=== PATIENT | female | born 1990 | race African-American/Black ===

== ENCOUNTER 2016-11-04 19:19 | Emergency (ER) | payer OTHER, MEDICAID ==
[~2016-11-04] VITALS: Ht 170.2 cm; Wt 81.2 kg
[2016-11-04 19:43] VITALS: BP 116/75
[2016-11-04 19:53] LABS: BILIRUBIN,URINE NEGATIVE (NEG); GLUCOSE,URINE NEGATIVE (NEG); NITRITE,URINE NEGATIVE (NEG); PH,URINE 6.5; PROTEIN,URINE NEGATIVE (NEG-TRACE)
[2016-11-04 20:00] LABS: BASO # 0.1 x10^3/uL (0.0-0.2); BASO % 1 % (0-3); EOS % 2 % (0-3); HEMATOCRIT 37.3 % (36.0-47.0); HEMOGLOBIN 12.5 g/dL (12.0-15.5); LYMPH % 28 % (24-48); MEAN CORPUSCULAR HEMOGLOBIN 30 pg (25-35); MEAN CORPUSCULAR HGB CONC 34 g/dL (31-37); MEAN CORPUSCULAR VOLUME 89 fL (79-100); MONO % 9 % (0-9); NEUT % 61 % (31-73); PLATELET COUNT 180 x10^3/uL (140-400); RED BLOOD COUNT 4.19 x10^6/uL (3.50-5.40); WHITE BLOOD COUNT 10.6 x10^3/uL (4.0-11.0)
[2016-11-04 20:10] LABS: BACTERIA,URINE FEW /HPF (0-FEW); RBC,URINE 0 /HPF (0-2); SQUAMOUS EPITHELIAL CELL,UR MOD /LPF; WBC,URINE 20-40 /HPF (0-4)
--- NOTE | 2016-11-04 20:11 | PHYS DOC ---
Past Medical History Past Medical History: No Pertinent History Past Surgical History: No Surgical History Alcohol Use: None Drug Use: None Adult General Chief Complaint Chief Complaint: VAGINAL BLEEDING [facility] HPI Patient is a 26 year old female with no significant medical history who presents today with vaginal bleeding in that began this evening. Patient describes the bleeding as spotting. Denies any abdominal pain urgency frequency dysuria, she states she had an episode of vomiting this morning. She states she is currently 7 weeks 2 para 1. She states she has already seen a provider in an outpatient clinic a week ago and they did an ultrasound and urine which were normal. Review of Systems Review of Systems Constitutional: Denies fever or chills [] Eyes: Denies change in visual acuity, redness, or eye pain [] HENT: Denies nasal congestion or sore throat [] Respiratory: Denies cough or shortness of breath [] Cardiovascular: No additional information not addressed in HPI [] GI: Vaginal bleeding in : Denies dysuria or hematuria [] Musculoskeletal: Denies back pain or joint pain [] Integument: Denies rash or skin lesions [] Neurologic: Denies headache, focal weakness or sensory changes [] Endocrine: Denies polyuria or polydipsia [] Allergies Allergies Allergies Coded Allergies Type Severity Reaction Last Updated Verified No Known Drug Allergies 11/04/16 No Physical Exam Physical Exam Constitutional: Well developed, well nourished, no acute distress, non-toxic appearance. [] HENT: Normocephalic, atraumatic, bilateral external ears normal, oropharynx moist, no oral exudates, nose normal. [] Eyes: PERRLA, EOMI, conjunctiva normal, no discharge. [] Neck: Normal range of motion, no tenderness, supple, no stridor. [] Cardiovascular:Heart rate regular rhythm, no murmur [] Lungs & Thorax: Bilateral breath sounds clear to auscultation [] Abdomen: Bowel sounds normal, soft, no tenderness, no masses, no pulsatile masses. [] Pelvic exam External pelvic appears normal, cervix not well visualized, no CMT, trace amount of bright red blood in the vaginal vault, no adnexal tenderness. Skin: Warm, dry, no erythema, no rash. [] Back: No tenderness, no CVA tenderness. [] Extremities: No tenderness, no cyanosis, no clubbing, ROM intact, no edema. [] Neurologic: Alert and oriented X 3, normal motor function, normal sensory function, no focal deficits noted. [] Psychologic: Affect normal, judgement normal, mood normal. [] Current Patient Data Vital Signs Vital Signs Date Time Temp Pulse Resp B/P (MAP) Pulse Ox O2 Delivery O2 Flow Rate FiO2 11/04/16 19:43 98.5 71 16 116/75 (89) 100 Room Air 98.5 Lab Values Laboratory Tests Test 11/04/16 19:22 11/04/16 19:36 11/04/16 19:45 Urine Collection Type Unknown Urine Color Yellow Urine Clarity Clear Urine pH 6.5 Urine Specific [place] >=1.030 Urine Protein Negative mg/dL (NEG-TRACE) Urine Glucose (UA) Negative mg/dL (NEG) Urine Ketones (Stick) Negative mg/dL (NEG) Urine Blood Large (NEG) Urine Nitrite Negative (NEG) Urine Bilirubin Negative (NEG) Urine Urobilinogen Dipstick 1.0 mg/dL (0.2 mg/dL) Urine Leukocyte Esterase Negative (NEG) Urine RBC 0 /HPF (0-2) Urine WBC 20-40 /HPF (0-4) Urine Squamous Epithelial Cells Mod /LPF Urine Bacteria Few /HPF (0-FEW) Urine Mucus Mod /LPF POC Urine HCG, Qualitative Hcg positive (Negative) White Blood Count 10.6 x10^3/uL (4.0-11.0) Red Blood Count 4.19 x10^6/uL (3.50-5.40) Hemoglobin 12.5 g/dL (12.0-15.5) Hematocrit 37.3 % (36.0-47.0) Mean Corpuscular Volume 89 fL (79-100) Mean Corpuscular Hemoglobin 30 pg (25-35) Mean Corpuscular Hemoglobin Concent 34 g/dL (31-37) Red Cell Distribution Width 14.0 % (11.5-14.5) Platelet Count 180 x10^3/uL (140-400) Neutrophils (%) (Auto) 61 % (31-73) Lymphocytes (%) (Auto) 28 % (24-48) Monocytes (%) (Auto) 9 % (0-9) Eosinophils (%) (Auto) 2 % (0-3) Basophils (%) (Auto) 1 % (0-3) Neutrophils # (Auto) 6.5 x10^3uL (1.8-7.7) Lymphocytes # (Auto) 3.0 x10^3/uL (1.0-4.8) Monocytes # (Auto) 0.9 x10^3/uL (0.0-1.1) Eosinophils # (Auto) 0.2 x10^3/uL (0.0-0.7) Basophils # (Auto) 0.1 x10^3/uL (0.0-0.2) Maternal Serum HCG Beta Subunit 33222 mIU/mL (0-5) H Sodium Level 137 mmol/L (136-145) Potassium Level 3.4 mmol/L (3.5-5.1) L Chloride Level 103 mmol/L (98-107) Carbon Dioxide Level 27 mmol/L (21-32) Anion Gap 7 (6-14) Blood Urea Nitrogen 10 mg/dL (7-20) Creatinine 0.7 mg/dL (0.6-1.0) Estimated GFR (Cockcroft-Gault) 120.6 Glucose Level 95 mg/dL (70-99) Calcium Level 8.9 mg/dL (8.5-10.1) Laboratory Tests 11/04/16 19:45 Laboratory Tests 11/04/16 19:45 Microbiology 11/04/16 Wet Prep - Final, Complete EKG EKG [] Radiology/Procedures Radiology/Procedures [] Course & Med Decision Making Course & Med Decision Making Pertinent Labs and Imaging studies reviewed. (See chart for details) This is a 2 para [id number] female patient currently 7 weeks presenting to the ED with vaginal bleeding in that began today. Bleeding is described as spotting by patient. On physical exam she had trace amount of bright red blood in the vaginal vault. Positive urine hCG, beta-hCG 40 ,177, CBC no acute findings, BMP with no acute findings, wet prep positive for BV, discharged with Flagyl. First trimester ultrasound was noted for a single IUP with estimated gestational age of 6 weeks 6 days and heart rate of 130 , small subchorionic hematoma age indeterminate, small corpus luteum cyst of the left ovary, trace amount of free pelvic fluid nonspecific. Blood group A positive. Spoke with Dr. Tatiana CANSECO, she requested patient to be discharged and can follow- up with her office on Monday. Patient was instructed put on bedrest. Patient was provided return precautions including the need to return to the ED if she starts soaking more than 1 feminine pad an hour or develops abdominal pain or cramping. Dragon Disclaimer Dragon Disclaimer This electronic medical record was generated, in whole or in part, using a voice recognition dictation system. Departure Departure Impression: Primary Impression: Miscarriage, threatened, early Additional Impressions: Bacterial vaginosis Subchorionic hematoma in first trimester Disposition: HOME, SELF-CARE Condition: STABLE Referrals: [facility] MD call the OBGYN provided on Monday. Patient Instructions: ABCs of , Threatened Miscarriage Additional Instructions: You were seen for vaginal bleeding in . Please maintain bedrest as we discussed including no sex, no strenuous activities, no heavy lifting, you also have bacterial vaginosis, this is not an STD. Complete your antibiotics. Contact the provided [employer] on Monday morning and follow-up. Scripts Metronidazole (FLAGYL) 500 Mg Tablet 1 TAB PO BID, #14 TAB Prov: JIMMY VILLAGOMEZ APRN 11/04/16 Problem Qualifiers Additional Impressions: Weeks of gestation: less than 8 weeks Qualified Codes: Z3A.01 - Less than 8 weeks gestation of Subchorionic hematoma in first trimester Fetus number: single or unspecified fetus Qualified Codes: O41.8X10 - Other specified disorders of amniotic fluid and membranes, first trimester, not applicable or unspecified; O46.8X1 - Other antepartum hemorrhage, first trimester JIMMY VILLAGOMEZ APRN Nov 04, 2016 20:11
[2016-11-04 20:13] LABS: CALCIUM 8.9 mg/dL (8.5-10.1); CREATININE 0.7 mg/dL (0.6-1.0); GFR 120.6; POTASSIUM 3.4 mmol/L (3.5-5.1)
--- NOTE | 2016-11-04 21:01 | RAD ---
First trimester OB ultrasound dated 11/04/2016. No comparison available. CLINICAL INDICATION: Vaginal bleeding today. FINDINGS: Gestational sac and pole within the endometrial canal. [place]-rump length measures 0.84 cm, correlating with a 6 week 6 day gestation with estimated sonographic date of delivery of 06/24/2017. heart rate 130 bpm. Yolk sac is visualized. There is a small hypoechoic collection adjacent to the gestational sac measures up to 2.4 cm in size. Right ovary measures 3.1 x 1.5 x 2.5 cm. Left ovary measures 3.1 x 2.1 x 2.7 cm. Normal color Doppler flow to both ovaries. There is a small corpus luteum cyst on the left measuring 1.9 cm. Small amount of simple free fluid. IMPRESSION: 1. Single viable intrauterine gestation with estimated sonographic gestational age of 6 weeks 6 day. 2. Small subchorionic hematoma, age indeterminate. 3. Small corpus luteum cyst at the left ovary. 4. Trace amount of free pelvic fluid, nonspecific. Electronically signed by: Truman Cox MD (11/04/2016 8:57 PM) [facility]
[2016-11-04] MEDS ORDERED: METR500T PO (22:51)
== END 2016-11-04 22:53 | disposition home or self-care (01) ==
LOC: ER 19:19
DX: O03.9 Complete or unspecified spontaneous abortion without complication (principal); O41.8X10 Other specified disorders of amniotic fluid and membranes, first trimester, not applicable or unspecified; O46.8X1 Other antepartum hemorrhage, first trimester; O23.591 Infection of other part of genital tract in pregnancy, first trimester; N76.0 Acute vaginitis; B96.89 Other specified bacterial agents as the cause of diseases classified elsewhere; Z3A.08 8 weeks gestation of pregnancy
CPT/HCPCS: 36415; 76801; 76817; 80048; 81001; 81025; 84702; 85025; 86850; 86900; 86901; 87086; 87491; 87591; 99285; Q0111